=== PATIENT | female | born 1975 | race Caucasian/White ===

== ENCOUNTER 2017-09-14 13:33 | Emergency (ER) | payer OTHER ==
[~2017-09-14] VITALS: Ht 177.8 cm; Wt 120.0 kg
[2017-09-14 13:39] VITALS: Ht 177.8 cm; Wt 120.0 kg
--- NOTE | 2017-09-14 14:47 | RADRPT ---
PROCEDURE: XR right shoulder. CLINICAL INDICATION: Trauma TECHNIQUE: AP Internal and external rotation views of the right shoulder were performed. COMPARISON: None. FINDINGS: There is normal osseous mineralization and alignment. No acute fracture or osseous lesion is identified. There are normal joints without evidence of arthritis or dislocation. There is calcium hydroxyapatite deposition at the insertion of the supraspinatus tendon. IMPRESSION: No fracture or dislocation. CPPD disease with supraspinatus tendonitis. .Erwin Wells MD, MD Date Time Electronically viewed and signed by .Erwin Wells MD, MD on 09/14/2017 14:47 .A/
[2017-09-14] MEDS ORDERED: BUPIVACAINE 0.5% (SDV) 30 ML INJ INJ ONE (15:30)
[2017-09-14] MEDS ORDERED: METHYLPREDNISOLONE 40 MG INJ IV ONE (15:30)
--- NOTE | 2017-09-14 16:02 | ERD ---
ER Documentation Chief Complaint Chief Complaint pt bib self with c/o right shoulder pain s/p box falling on it yesterday HPI This is a 41-year-old female with a history of right shoulder pain history with tendinitis and rotator cuff tear. 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 She is complaining of pain in the entire shoulder area mostly in the anterior deltoid region. There is no numbness or weakness the pain is sharp worse with movement better with rest. No other fall or trauma ROS All systems reviewed and are negative except as per history of present illness. Allergies Allergies: Coded Allergies: No Known Allergy (Unverified , 09/14/17) PMhx/Soc History of Surgery: Yes ( ) Hx Cardiac Disorders: Yes (htn ) Hx Alcohol Use: No Hx Substance Use: No Hx Tobacco Use: No FmHx Family History: No coronary disease Physical Exam Vitals Vital Signs Date Time Temp Pulse Resp B/P Pulse Ox O2 Delivery O2 Flow Rate FiO2 09/14/17 13:39 98.6 96 16 184/80 98 Physical Exam Const: Well-developed, well-nourished Head: Atraumatic, normocephalic Eyes: Normal Conjunctiva, PERRLA, EOMI, normal sclera, no nystagmus ENT: Normal External Ears, Nose and Mouth, moist mucus membranes. Neck: Full range of motion. No meningismus, no lymphadenopathy. Resp: Clear to auscultation bilaterally, no wheezing, rhonchi, rales Cardio: Regular rate and rhythm, no murmurs, S1 S2 present Abd: Soft, non tender x 4, non distended. Normal bowel sounds, no guarding or rebound, no pulsitile abdominal masses or bruits Skin: No petechiae or rashes, no ecchymosis , no maculopapular rash Back: No midline or flank tenderness Ext: No cyanosis, or edema, FROM x 4, normal inspection, neurovascularly intact x 4 limited range of motion the right shoulder due to pain there is diffuse tenderness mostly in the right anterior deltoid. No numbness or weakness the arm is vascularly intact Neur: Awake and alert, STR 5/5 x 4, sensation intact x 4, no focal findings, cerebellum intact Psych: Normal Mood and Affect Results 24 hrs Current Medications Medications (Trade) Dose Ordered Sig/Annie Route PRN Reason Start Time Stop Time Status Last Admin Dose Admin Methylprednisolone Sodium Succinate (Solu-Medrol) 40 mg ONCE ONCE IV 09/14/17 15:30 09/14/17 15:31 DC Bupivacaine HCl (Marcaine 0.5% (Sdv)) 30 ml ONCE ONCE INJ 09/14/17 15:30 09/14/17 15:31 DC Procedures/MDM PROCEDURE: XR right shoulder. CLINICAL INDICATION: Trauma TECHNIQUE: AP Internal and external rotation views of the right shoulder were performed. COMPARISON: None. FINDINGS: There is normal osseous mineralization and alignment. No acute fracture or osseous lesion is identified. There are normal joints without evidence of arthritis or dislocation. There is calcium hydroxyapatite deposition at the insertion of the supraspinatus tendon. IMPRESSION: No fracture or dislocation. CPPD disease with supraspinatus tendonitis. .Erwin Wells MD, MD Date Time Electronically viewed and signed by .Erwin Wells MD, MD on 09/14/2017 14: 47 .A/ CC: PARK MONSON DO Procedure: Right shoulder joint injection by me The right shoulder was prepped in aseptic technique and injected 3 cc of fluid containing 2 cc of 0.5% bupivacaine with 1 cc of Solu-Medrol which was 40 mg/mL Adequate anesthesia was done the joint Patient was given a sling Departure Diagnosis: Primary Impression: Contusion of right shoulder Encounter type: initial encounter Qualified Code: S40.011A - Contusion of right shoulder, initial encounter Additional Impression: Internal derangement of right shoulder Condition: Stable PARK MONSON DO Sep 14, 2017 16:02
[2017-09-14] MEDS ORDERED: IBUP800T25 PO (16:03)
[2017-09-14] MEDS ORDERED: HYDR-902 PO (16:03)
[2017-09-14] MEDS ORDERED: HYDROmorphONE 2 MG/ML SYG IM STA (16:11)
[2017-09-14] MEDS ORDERED: ONDANSETRON (ODT) 4 MG TAB ODT STA (16:11)
[2017-09-14 16:45] VITALS: BP 170/82; PULSE 92; RESP 18
== END 2017-09-14 16:45 | disposition home or self-care (01) ==
LOC: FTE 13:33
DX: S40.011A Contusion of right shoulder, initial encounter (principal); M24.611 Ankylosis, right shoulder; I10 Essential (primary) hypertension; W22.8XXA Striking against or struck by other objects, initial encounter; Y92.9 Unspecified place or not applicable
CPT/HCPCS: 73030; 96372; 99284; J1170; J2920